=== PATIENT | female | born 1985 | race Caucasian/White ===

== ENCOUNTER → 2018-01-17 | Outpatient (CLI) | payer OTHER ==
--- NOTE | 2018-01-17 15:20 | RADIOLOGY REPORT (SQ) ---
EXAM DESCRIPTION: KUB COMPLETED DATE/TIME: 01/17/2018 2:26 pm REASON FOR STUDY: DISPLACEMENT OF INTRAUTERINE CONTRACEPTIVE DEVICE, INIT T83.32XA DISPLACEMENT OF INTRAUTERINE CONTRACEPTIVE DEVICE, COMPARISON: None. NUMBER OF VIEWS: One view. TECHNIQUE: Supine radiographic image of the abdomen acquired. LIMITATIONS: None. FINDINGS: BOWEL GAS PATTERN: Normal bowel gas pattern. No dilated loops. CALCIFICATIONS: No suspicious calcifications. SOFT TISSUES: No gross mass or suggestion of organomegaly. HARDWARE: An IUD is seen in the abdomen to the left of the spine about 3 cm above the level of the il iac crest. BONES: No acute fracture. No worrisome bone lesions. OTHER: No other significant finding. IMPRESSION: IUD as described. TECHNICAL DOCUMENTATION: JOB ID: [id number] [employer]- All Rights Reserved Reading location - IP/workstation name: [email or web address]
== END ==
LOC: OD 14:02
PROVIDERS: ATTEND Specialist
DX: T83.32XA Displacement of intrauterine contraceptive device, initial encounter (principal)
CPT/HCPCS: 74018

== ENCOUNTER 2018-02-21 08:32 | Day surgery (SDC) | payer OTHER ==
[2018-02-13 10:41] LABS: APPEARANCE,URINE CLEAR; BILIRUBIN,URINE NEGATIVE (NEGATIVE); COLOR,URINE STRAW; GLUCOSE, URINE NEGATIVE (NEGATIVE); KETONES,URINE NEGATIVE (NEGATIVE); LEUKOCYTE ESTERASE,URINE NEGATIVE (NEGATIVE); NITRITE,URINE NEGATIVE (NEGATIVE); PROTEIN,URINE NEGATIVE (NEGATIVE); URINE SPECIFIC GRAVITY 1.002; UROBILINOGEN,URINE NEGATIVE mg/dL (<2.0)
[2018-02-13 12:00] LABS: HEMATOCRIT 42.6 % (36.0-47.0); HEMOGLOBIN 14.3 g/dL (12.0-15.5); MEAN CORPUSCULAR HGB CONC 33.5 g/dL (32.0-36.0); MEAN CORPUSCULAR VOLUME 87 fl (80-97); PLATELET COUNT 171 10^3/uL (150-450); RED BLOOD COUNT 4.92 10^6/uL (3.72-5.28); RED CELL DISTRIBUTION WIDTH 12.8 % (11.5-14.0); WHITE BLOOD COUNT 5.8 10^3/uL (4.0-10.5)
[~2018-02-21 08:32] MED LIST: BUPIVACAINE HCL 0.25 % INJ/PF (2.5 MG/1 ML) 30 ML VIAL ONE; LACTATED RINGERS 1000 ML IV PRN; LIDOCAINE 0.5% INJ-PF (5 MG/ML) 50 ML SDV SUBCUT PRN
[2018-02-21] MEDS ORDERED: FAMOTIDINE INJ/PF 20 MG/2 ML SDV IV PRN (08:58)
[2018-02-21] MEDS ORDERED: SCOPOLAMINE HYDROBROMIDE 1.5 MG PATCH.TD72 TD PRN (08:58)
[2018-02-21] MEDS ORDERED: FAMOTIDINE INJ/PF 20 MG/2 ML SDV IV ONE (09:03)
[2018-02-21] MEDS ORDERED: SCOPOLAMINE HYDROBROMIDE 1.5 MG PATCH.TD72 ONE (09:03)
[2018-02-21] MEDS ORDERED: LIDOCAINE 2% INJ-PF (20 MG/ML) 10 ML AMPUL ONE (11:01)
[2018-02-21] MEDS ORDERED: FENTANYL CITRATE INJ/PF 100 MCG/2 ML AMPUL ONE ×3 (11:01→13:06)
[2018-02-21] MEDS ORDERED: MIDAZOLAM 2 MG/2 ML INJ ONE (11:02)
[2018-02-21] MEDS ORDERED: PROPOFOL INJ 200 MG/20 ML VIAL IV ONE (11:02)
[2018-02-21] MEDS ORDERED: DIPHENHYDRAMINE HCL 50 MG/ML VIAL IV PRN (12:01)
[2018-02-21] MEDS ORDERED: FENTANYL CITRATE INJ/PF 100 MCG/2 ML AMPUL IV PRN ×3 (12:01)
[2018-02-21] MEDS ORDERED: PROMETHAZINE HCL INJ 25 MG/1 ML VIAL IV PRN (12:01)
[2018-02-21] MEDS ORDERED: MEPERIDINE HCL/PF INJ 25 MG/1 ML DISP.SYRIN IV PRN (12:01)
[2018-02-21] MEDS ORDERED: MORPHINE SULFATE 10 MG/ML INJ IM PRN (13:03)
[2018-02-21] MEDS ORDERED: OXYCODONE-ACETAMINOPHEN 5-325 MG TABLET PO PRN ×2 (13:04)
[2018-02-21] MEDS ORDERED: IBUPROFEN 800 MG TABLET PO PRN (13:04)
--- NOTE | 2018-02-21 13:35 | OPERATIVE REPORT E ---
Operative Report NAME: KAE ZELAYA : 1985 AGE: 33Y DATE OF SURGERY: 02/21/2018 ROOM: PREOPERATIVE DIAGNOSIS: Perforated IUD. POSTOPERATIVE DIAGNOSIS: Perforated IUD. SURGEON: JORGE L TAFOYA MD ANESTHESIOLOGIST: DANIEL BRADSHAW MD ANESTHESIA: General. FINDINGS: X-ray located IUD in the omentum near the spleen. COMPLICATIONS: None. ESTIMATED BLOOD LOSS: 20 mL. SPECIMENS REMOVED: None. PROCEDURE: Diagnostic laparoscope and removal of perforated IUD. PROCEDURE IN DETAIL: The patient was taken to the operating room, prepared and draped in the normal sterile fashion in a dorsal lithotomy position under sterile conditions. An in-and-out cath was performed to approximately 20 mL of clear urine. A sterile speculum was then placed into the vagina and the cervix was prepped with Betadine. Cervix was grasped on the anterior lip with a single-tooth tenaculum and a Hulka clamp was placed through the cervix for the uterine manipulation without difficulty. The speculum was then removed and gloves were changed and attention was turned to the upper portion of the case. An umbilical skin incision was made with a scalpel and the Veress needle was introduced into the peritoneal cavity and placement confirmed with free flow of sterile water through the Veress needle. The abdomen was insufflated with approximately 2 L of CO2 gas and a 5 mm port was then placed through the same incision after removal of the Veress needle. Under direct visualization, another 5 mm port was placed in the left lower quadrant. The patient was placed in Trendelenburg and inspection of the peritoneal cavity revealed some blood-tinged fluid in the posterior cul-de-sac, which was suctioned away with the suction peel oven tender. The posterior and anterior cul-de-sac were well inspected. The right and left pelvic sidewalls were well inspected with no identification of the IUD. I then re-looked at the patient's x-ray from her chart, which was brought over by the strategic manager on the computer and noted that the IUD seemed to be a little higher up than I initially had thought, so I inspected the upper abdomen carefully with the camera and could not locate the IUD. The bowel was manipulated several times to search for the device and it was not locatable. I then continued to inspect the pelvic cavity and the abdominal cavity. However, it became clear that there was no locating of the IUD at that time, so I asked for an x-ray team to come in with a fluoroscopy to locate the device for me. I also asked for General Surgery to come on board as I had a suspicion for bowel involvement, so Dr. Pelayo did come to the room. The x-ray in the interim did locate the IUD up near the splenic gutter and at that point, I turned the camera and continued to manipulate the bowel and finally was able to locate the IUD and realized that it was entrapped within the omentum. We grasped the IUD several times and tried to loosen it from the omentum with some gentle traction. However, this proved to not be successful. At this point, Dr. Pelayo was in the OR and asked if I would like for him to scrub in and I said "please do," and Dr. Pelayo then scrubbed in and assisted with freeing the omentum from the IUD. We realized that a third port was going to be necessary, so this was placed by Dr. Pelayo in the upper right quadrant and with this, he was able to grasp the omentum and softly dissect the omentum away from the IUD and then remove it through the 5 mm port that he was using. We then noticed a little bit of oozing on the omentum, so a piece of Surgicel was placed on top of the omentum to use for coagulative purposes. This was obtained without difficulty using the Surgicel and the Surgicel was then removed. The ports were then removed and the abdomen was deflated through the umbilical port. Three skin incisions were then closed with 4-0 Vicryl. The patient tolerated the procedure well. Sponge, lap, and needle counts were correct x2. The patient was taken to recovery in stable condition. DICTATING PHYSICIAN: JORGE L TAFOYA M.D. [id number] PHY#: [id number] ID: [id number] JOB#: [id number] ACCT: [id number] cc:JORGE L TAFOYA M.D. >
[2018-02-21 15:37] VITALS: BP 109/69
[2018-02-21] MEDS ORDERED: KETOROLAC TROMETHAMINE 60 MG/2 ML SDV ONE (20:21)
[2018-02-21] MEDS ORDERED: METOCLOPRAMIDE HCL INJ/PF 10 MG/2 ML SDV ONE (20:21)
[2018-02-21] MEDS ORDERED: ONDANSETRON HCL INJ/PF 4 MG/2 ML SDV ONE (20:21)
[2018-02-21] MEDS ORDERED: SUCCINYLCHOLINE CHLORIDE INJ 200 MG/10 ML VIAL ONE (20:21)
== END 2018-02-21 15:00 | disposition home or self-care (01) ==
LOC: OROUT 08:32
PROVIDERS: ATTEND Obstetrics & Gynecology
DX: T83.39XD Other mechanical complication of intrauterine contraceptive device, subsequent encounter (principal); Z01.818 Encounter for other preprocedural examination; R10.2 Pelvic and perineal pain
CPT/HCPCS: 36415; 85027; 81005; 81025; 49329; J2250; J1885; J3010; J2765; J0330; J2405; J2704; S0028; J3490; 790